=== PATIENT | female | born 1980 | race Caucasian/White ===

== ENCOUNTER 2016-09-08 05:54 | Day surgery (SDC) | payer OTHER ==
[2016-09-06 16:05] VITALS: BMI 27.8
--- NOTE | 2016-09-08 08:35 | HP ---
History & Physical Update - History History: No Change - Physical Physical: No Change - Assessment Assessment: No Change - Plan Plan: No Change (for laparoscopic bilateral salpingectomy)
[2016-09-08] MEDS ORDERED: IBUPROFEN 800 MG/8 ML IJ IVPB PRN (08:53)
[2016-09-08] MEDS ORDERED: ACETAMINOPHEN 325 MG TABLET (FP) PO PRN (08:53)
[2016-09-08] MEDS ORDERED: LACTATED RINGERS SOLUTION 1,000 ML IV SCH (09:00)
[2016-09-08] MEDS ORDERED: MIDAZOLAM HCL 2 MG/2 ML SINGLE DOSE VIAL ONE (09:10)
[2016-09-08] MEDS ORDERED: LIDOCAINE HCL/PF 2% SDV 5ML VIAL ONE (09:10)
[2016-09-08] MEDS ORDERED: PROPOFOL 20 ML ONE (09:10)
[2016-09-08] MEDS ORDERED: DEXAMETHASONE SOD PHOSPHATE 4 MG/1 ML VIAL ONE (09:37)
[2016-09-08] MEDS ORDERED: KETOROLAC TROMETHAMINE 30 MG/1 ML VIAL ONE (09:37)
[2016-09-08] MEDS ORDERED: GLYCOPYRROLATE 0.2 MG/1 ML VIAL ONE (09:51)
[2016-09-08] MEDS ORDERED: NEOSTIGMINE METHYLSULFATE 0.5 MG/ML - 10 ML MDV ONE (09:51)
[2016-09-08] MEDS ORDERED: oxyCODONE HCL 5 MG TABLET PO PRN (10:17)
[2016-09-08] MEDS ORDERED: ONDANSETRON 4 MG/2 ML VIAL IVPUSH PRN (10:17)
[2016-09-08] MEDS ORDERED: ACETAMINOPHEN 1000 MG/100 ML VIAL (NON FORMULARY) IVPB ONE (10:18)
[2016-09-08] MEDS ORDERED: ACETAMINOPHEN INJECTION 100 ML IVPB ONE (10:24)
[2016-09-08 13:03] VITALS: BP 117/72; PULSE 73; TEMP 98.6
--- NOTE | 2016-09-09 12:34 | OP ---
Operative Note - Note: Operative Date: 09/08/16 (dictation number: [id number]) Pre-Operative Diagnosis: desires permanent sterilization Operation: laparoscopic bilateral salpingectomy Findings: normal fallopian tubes/ovaries normal uterus normal female intrapelvic anatomy Post-Operative Diagnosis: Same as Pre-op Surgeon: Miriam Murrieta Snack Bar Cook: Miranda Zheng Anesthesiologist/CHANNEL MARKETING COORDINATOR: Teresa Patel Anesthesia: General Specimens Removed: bilateral fallopian tubes Estimated Blood Loss (mls): 3 Operative Report Dictated: Yes
--- NOTE | 2016-09-09 13:46 | PATH ---
Surgical Pathology Report Patient Name: [facility]MIE [facility]. Rec. #: [id number] /Age/Gender: 1980 (Age: 36) / F Account: [id number] Location: [facility] Taken: 09/08/2016 Received: 09/08/2016 Reported: 09/09/2016 Physicians: Miriam Murrieta M.D. Specimen(s) Received A: RIGHT FALLOPIAN TUBE B: LEFT FALLOPIAN TUBE Clinical History Desired sterilization Final Diagnosis A. FALLOPIAN TUBE, RIGHT, SALPINGECTOMY: BENIGN FALLOPIAN TUBE WITH COMPLETE CROSS SECTION B. FALLOPIAN TUBE, LEFT, SALPINGECTOMY: BENIGN FALLOPIAN TUBE WITH COMPLETE CROSS SECTION. Electronically Signed Keith Delgado M.D. Gross Description A. Received in formalin, labeled "right tube" is a 6.5 cm in length fimbriated portion of fallopian tube. There is a 0.5 cm in greatest dimension paratubal cyst attached to the fimbria. The outer surface of the fallopian tube is amin-pink and smooth. Sectioning reveals an unremarkable lumen. Fishing Vessel Mate sections are submitted in 2 cassettes as follows: 1-fimbria with paratubal cyst; 9-zemkq-ixpetyci of fallopian tube B. Received in formalin, labeled "left tube" is a 4.5 cm in length fimbriated portion of fallopian tube. The outer surface is amin-pink and smooth. Sectioning reveals an unremarkable lumen. Fishing Vessel Mate sections are submitted in 2 cassettes as follows: 1-fimbria; 2-cross sections of fallopian tube. 09/08/201609/08/2016
--- NOTE | 2016-09-09 18:54 | OP ---
DATE OF OPERATION: 09/08/2016 PREOPERATIVE DIAGNOSIS: Desire for permanent sterilization. POSTOPERATIVE DIAGNOSIS: Desire for permanent sterilization. PROCEDURE: Laparoscopic bilateral salpingectomy. SURGEON: Miriam Murrieta M.D. RD SCIENTIST: Christine Prieto COMPLICATIONS: None. ESTIMATED BLOOD LOSS: Minimal. ANESTHESIA: General anesthesia. ANESTHESIOLOGIST: Teresa Patel M.D. DISPOSITION: Stable to PACU. COUNTS: Sponge, needle, and instrument count was reported correct at the end of the case. BRIEF HISTORY AND PROCEDURE: Patient is a 36-year-old female who has been seen in the office with a request for permanent sterilization procedure. She does not desire future childbearing. The patient was consented on her options and elected to undergo laparoscopic bilateral salpingectomy. The patient was taken to [facility] on September 08, 2016, and consents were reconfirmed upon admission. The patient was then taken back to the operating room. She was given general anesthesia by Dr. Teresa Patel, and prepped and draped in the usual sterile fashion in the dorsal lithotomy position. A hard timeout was performed. A Almaraz catheter was placed under sterile conditions. First, a 5-mm infraumbilical skin incision was created, and a Veress needle was placed inside the abdomen, which was then used to insufflate the abdomen. After the abdomen was insufflated with CO2 gas, a trocar was placed in the incision and the camera was placed inside the abdomen to confirm intraabdominal placement. After confirmation of intraabdominal placement, bilateral lower quadrant ports, one on the left, and one on the right, were placed, 5 mm in size, under direct visualization. Next, the right fallopian tube was identified and traced to its fimbriated end, elevated, and dissected off the attachment to the ovary to the uterus and to the ligamentous attachments. Same was repeated on the left fallopian tube. Both fallopian tubes were removed from the 5-mm trocar under direct visualization and sent to pathology for permanent evaluation. Inspection of surgical site reveals hemostasis. Next the abdomen was desufflated. The trocars were removed from the abdomen. The incisions were reapproximated using Biosyn suture and skin glue, and the patient tolerated the procedure well, is recovering in stable condition in PACU after the procedure. Sponge, needle and instrument count was reported as correct at the end of the case. MIRIAM MURRIETA DO /[id number] MTDD
== END 2016-09-08 12:50 | disposition home or self-care (01) ==
LOC: JASU-SURG 05:54
PROVIDERS: ATTEND Obstetrics & Gynecology
PROC: 0UB74ZZ Excision of Bilateral Fallopian Tubes, Percutaneous Endoscopic Approach (ICD-10-PCS; principal; 2016-09-08 08:30)
DX: Z30.2 Encounter for sterilization (principal)
CPT/HCPCS: 88302-TC; 94760

== ENCOUNTER 2016-09-12 17:48 | Emergency (ER) | payer OTHER ==
[2016-09-12 18:11] VITALS: BP 122/68; PULSE 83; TEMP 98.1; BMI 27.6
--- NOTE | 2016-09-12 19:18 | PDOC ---
History of Present Illness - History of Present Illness Initial Comments: 09/12/16 19:58 The patient is a 36 year old female, with a significant past medical history of hyperlipidemia, who presents to the emergency department with increasing abdominal pain, nausea, vomiting and generalized weakness since having laparoscopic removal of bilateral fallopian tubes on 09/08/16. She reports her abdominal pain is localized to the lower abdominal region and nonradiating. She reports her pain is constant. She reports a couple episodes of vomiting today and states she feels weak. She denies chest pain, shortness of breath, headache and dizziness. She denies fever, chills, diarrhea and constipation. She denies dysuria, frequency, urgency and hematuria. Allergies: NKDA Past surgical history: bilateral salpingectomy (09/08/16) Social history: denies toxic habits MECHANICAL ENGINEERING INTERN: Dr. Murrieta <Eugenie Garza - Last Filed: 09/12/16 23:41> <Saul Jean - Last Filed: 09/12/16 23:43> - General Chief Complaint: Pain, Acute Stated Complaint: CHILLS/VOMITING/LOWER ABD PAIN Time Seen by Provider: 09/12/16 19:18 Past History <Eugenie Garza - Last Filed: 09/12/16 23:41> - Past Medical History Anemia: No Asthma: No Cancer: No Cardiac Disorders: No CVA: No COPD: No CHF: No Dementia: No Diabetes: No GI Disorders: No Disorders: No HTN: No Hypercholesterolemia: Yes Liver Disease: No Seizures: No Thyroid Disease: No - Surgical History Abdominal Surgery: (TUBES REMOVED 09/08/16) - Reproductive History (#): 1 Para: 0 Therapeutic (s) & number: No Spontaneous : 0 - Psycho/Social/Smoking Cessation Hx Anxiety: No Suicidal Ideation: No Smoking Status: No Smoking History: Never smoked Number of Cigarettes Smoked Daily: 0 Hx Alcohol Use: No Drug/Substance Use Hx: No Substance Use Type: None <Saul Jean - Last Filed: 09/12/16 23:43> - Past Medical History Allergies/Adverse Reactions: Allergies Allergy/AdvReac Type Severity Reaction Status Date / Time No Known Allergies Allergy Verified 09/12/16 18:11 Home Medications: Ambulatory Orders Bc Pill 1 tab PO DAILY 02/20/17 Oxycodone HCl/Acetaminophen [Percocet 5-325 mg Tablet -] 1 tab PO Q4H #20 tablet MDD 6 09/08/16 Review of Systems - Review of Systems Able to Perform ROS?: Yes Comments:: 09/12/16 19:58 CONSTITUTIONAL: (+) generalized weakness. Absent: fever, chills, diaphoresis, malaise, loss of appetite HEENT: Absent: rhinorrhea, nasal congestion, throat pain, throat swelling, difficulty swallowing, mouth swelling, ear pain, eye pain, visual Changes CARDIOVASCULAR: Absent: chest pain, syncope, palpitations, irregular heart rate, lightheadedness , peripheral edema RESPIRATORY: Absent: cough, shortness of breath, dyspnea with exertion, orthopnea, wheezing, stridor, hemoptysis GASTROINTESTINAL: (+) lower abdominal pain, nausea, vomiting, Absent: abdominal distension, diarrhea, constipation, melena, hematochezia GENITOURINARY: Absent: dysuria, frequency, urgency, hesitancy, hematuria, flank pain, genital pain MUSCULOSKELETAL: Absent: myalgia, arthralgia, joint swelling SKIN: Absent: rash, itching, pallor HEMATOLOGIC/IMMUNOLOGIC: Absent: easy bleeding, easy bruising, lymphadenopathy, frequent infections ENDOCRINE: Absent: unexplained weight gain, unexplained weight loss, heat intolerance, cold intolerance NEUROLOGIC: Absent: headache, focal weakness or paresthesias, dizziness, unsteady gait, seizure, mental status changes, bladder or bowel incontinence PSYCHIATRIC: Absent: anxiety, depression, suicidal or homicidal ideation, hallucinations. <Eugenie Garza - Last Filed: 09/12/16 23:41> *Physical Exam - Vital Signs Last Vital Signs Temp Pulse Resp BP Pulse Ox 98.1 F 83 18 122/68 99 09/12/16 18:08 09/12/16 18:08 09/12/16 18:08 09/12/16 18:08 09/12/16 18:08 - Physical Exam Comments: 09/12/16 20:00 GENERAL: Well developed, well nourished. Awake and alert. No acute distress. HEENT: Normocephalic, atraumatic. PERRLA, EOMI. No conjunctival pallor. Sclera are non- icteric. Moist mucous membranes. Oropharynx is clear. NECK: Supple. Full ROM. No JVD. Carotid pulses 2+ and symmetric, without bruits. No thyromegaly. No lymphadenopathy. CARDIOVASCULAR: Regular rate and rhythm. No murmurs, rubs, or gallops. Distal pulses are 2+ and symmetric. PULMONARY: No evidence of respiratory distress. Lungs clear to auscultation bilaterally. No wheezing, rales or rhonchi. ABDOMINAL: (+) Suprapubic tenderness to papation. Soft. Non-distended. No rebound or guarding. No organomegaly. Normoactive bowel sounds. MUSCULOSKELETAL Normal range of motion at all joints. No bony deformities or tenderness. No CVA tenderness. EXTREMITIES: No cyanosis. No clubbing. No edema. No calf tenderness. SKIN: Warm and dry. Normal capillary refill. No rashes. No jaundice. NEUROLOGICAL: Alert, awake, appropriate. Cranial nerves 2-12 intact. Normoreflexic in the upper and lower extremities. Normal speech. Toes are down-going bilaterally. Gait is normal without ataxia. PSYCHIATRIC: Cooperative. Good eye contact. Appropriate mood and affect. <Eugenie Garza - Last Filed: 09/12/16 23:41> - Vital Signs Last Vital Signs Temp Pulse Resp BP Pulse Ox 98.1 F 83 18 122/68 99 09/12/16 18:08 09/12/16 18:08 09/12/16 18:08 09/12/16 18:08 09/12/16 18:08 <Saul Jean - Last Filed: 09/12/16 23:43> ED Treatment Course - LABORATORY CBC & Chemistry Diagram: 09/12/16 19:45 09/12/16 19:45 - ADDITIONAL ORDERS Additional order review: 09/12/16 19:45 RBC 4.38 MCV 89.7 MCHC 34.7 RDW 13.1 MPV 8.6 Neutrophils % 83.4 H D Lymphocytes % 13.4 D Monocytes % 2.5 L Eosinophils % 0.4 Basophils % 0.3 - RADIOLOGY Radiograph Interpretation: 09/12/16 23:41 Exam: Contrast-enhanced CT abdomen and pelvis was read by Oni Castillo M.D. at 23:19 EST Clinical indication: Postop. Bilateral salpingectomy. Findings: The lung bases are clear. The upper abdominal viscera have a normal appearance. The adrenal glands are unremarkable. The kidneys have a normal appearance and enhance symmetrically. There is no evidence of urinary tract obstruction. The gastrointestinal tract does not appear obstructed. No thickened or dilated bowel is seen. The appendix has a normal appearance. There is no mesenteric infiltration. The uterus is anteverted. No adnexal masses are seen. The urinary bladder is unremarkable. No abdominal or pelvic adenopathy is seen. No lytic or blastic destructive osseous lesions are seen. Impression: No inflammatory process identified in the abdomen or pelvis. No abdominal mass, adenopathy or collection seen. - Medications Given in the ED: ED Medications Discontinued Medications Generic Name Dose Route Start Last Admin Trade Name Freq PRN Reason Stop Dose Admin Fentanyl 50 mcg 09/12/16 19:22 09/12/16 19:50 Sublimaze Injection - IVPUSH 09/12/16 19:23 50 mcg ONCE ONE Administration <Eugenie Garza - Last Filed: 09/12/16 23:41> - LABORATORY CBC & Chemistry Diagram: 09/12/16 19:45 09/12/16 19:45 <Saul Jean - Last Filed: 09/12/16 23:43> Medical Decision Making - Medical Decision Making 09/12/16 23:36 Dr. Murrieta was paged via phone answering service at this time requesting a callback for doctor to doctor consult. I was immediately connected with Dr. Murrieta's colleague, Dr. Molina and the patient's case was discussed. I will discharge home for routine post-op care. <Eugenie Garza - Last Filed: 09/12/16 23:41> *DC/Admit/Observation/Transfer - Attestations Scribe Attestion: 09/12/16 20:00 Documentation prepared by Eugenie Garza, acting as medical supervisor for Saul Jean MD, MD <Eugenie Garza - Last Filed: 09/12/16 23:41> - Discharge Dispostion Admit: No <Saul Jean - Last Filed: 09/12/16 23:43> Diagnosis at time of Disposition: Postoperative pain - Discharge Dispostion Disposition: HOME Condition at time of disposition: Improved
[2016-09-12] MEDS ORDERED: SODIUM CHLORIDE 1,000 ML IV SCH (19:30)
[2016-09-12 19:54] LABS: BASOPHIL 0.3 % (0-2.0); EOSINOPHIL 0.4 % (0-4.5); MCH 31.1 pg (25.7-33.7); MCHC 34.7 g/dl (32.0-36.0); MEAN CELL VOLUME 89.7 fl (80-96); MEAN PLT VOLUME 8.6 fl (7.5-11.1); NEUTROPHILS 83.4 % (42.8-82.8); PLATELET COUNT 285 K/MM3 (134-434); RDW 13.1 % (11.6-15.6); WHITE BLOOD COUNT 9.8 K/mm3 (4.0-10.0)
[2016-09-12] MEDS ORDERED: ONDANSETRON 4 MG/2 ML VIAL ONE (20:14)
[2016-09-12 20:16] LABS: ALBUMIN 3.7 g/dl (3.4-5.0); ANION GAP 7 (8-16); BILIRUBIN,TOTAL 0.4 mg/dL (0.2-1.0); CO2 27 mmol/L (21-32); CREATININE 0.6 mg/dL (0.55-1.02); GLUCOSE,RANDOM 129 mg/dL (74-106); SGOT/AST 13 U/L (15-37); SGPT/ALT 22 U/L (12-78); TOT PROT 7.9 g/dl (6.4-8.2)
[2016-09-12 20:17] LABS: ALK PHOS 84 U/L (45-117)
[2016-09-12] MEDS ORDERED: ONDANSETRON 4 MG/2 ML VIAL IVPUSH ONE (20:17)
[2016-09-12 21:36] LABS: URINE APPEARANCE CLEAR; URINE BILIRUBIN NEGATIVE (NEGATIVE); URINE BLOOD NEGATIVE (NEGATIVE); URINE COLOR LTYELLOW; URINE GLUCOSE (UA) NEGATIVE (NEGATIVE); URINE KETONE NEGATIVE (NEGATIVE); URINE NITRITE NEGATIVE (NEGATIVE); URINE PROTEIN NEGATIVE (NEGATIVE); URINE UROBILINOGEN NEGATIVE E.U./dl (0.2-1.0)
[2016-09-12 21:44] LABS: URINE BACTERIA RARE /hpf (NONE SEEN); URINE LEUK ESTERASE TRACE (NEGATIVE); URINE RBC 4 /hpf (0-3); URINE WBC 10 /hpf (3-5)
== END 2016-09-12 23:57 | disposition home or self-care (01) ==
LOC: JER 17:48
PROC: 3E033NZ Introduction of Analgesics, Hypnotics, Sedatives into Peripheral Vein, Percutaneous Approach (ICD-10-PCS; principal; 2016-09-12)
PROC: 3E033GC Introduction of Other Therapeutic Substance into Peripheral Vein, Percutaneous Approach (ICD-10-PCS; 2016-09-12)
DX: G89.18 Other acute postprocedural pain (principal)
CPT/HCPCS: 36415; 74177-TC; 80053; 81003; 81015; 83690; 84703; 85025; 86850; 86900; 86901; 87086; 96374; 96375; 99282-25

== ENCOUNTER 2019-05-22 09:16 | Day surgery (SDC) | payer BC ==
[2019-05-21 17:33] VITALS: BMI 29.1
[2019-05-22 10:28] LABS: INR 1.11 (0.83-1.09); PROTHROMBIN TIME (PATIENT) 13.1 SEC (9.7-13.0)
[2019-05-22 10:31] LABS: ACTIVATED PTT 36.9 SECONDS (25.2-36.5)
[2019-05-22 10:46] LABS: ANION GAP 6 MMOL/L (8-16); BLOOD UREA NITROGEN 12.6 mg/dL (7-18); CALCIUM 8.9 mg/dL (8.5-10.1); CHLORIDE 108 mmol/L (98-107); CO2 23 mmol/L (21-32); CREATININE 0.5 mg/dL (0.55-1.3); GLUCOSE,RANDOM 88 mg/dL (74-106); POTASSIUM 4.2 mmol/L (3.5-5.1); SODIUM 138 mmol/L (136-145)
--- NOTE | 2019-05-22 10:56 | OP ---
Operative Note - Note: Operative Date: 05/22/19 Pre-Operative Diagnosis: 38yo P0 with thick endometrium and menometrorhagia Operation: Hysteroscopy, Lysis of adhesions, Polypectomy, D&C Findings: Lower uterine segment obstructing tissue Uterine polyps Overgrown Endometrium Post-Operative Diagnosis: Same as Pre-op Surgeon: Pilar Kate Anesthesiologist/DIE CLEANER: Frank Tinoco Anesthesia: MAC Estimated Blood Loss (mls): 10 Instrument used (Debridements only): Symphion Drains & Tubes with Location: FD 800cc Blood Volume Replaced (mls): 10 Fluid Volume Replaced (mls): 300 Operative Report Dictated: Yes
--- NOTE | 2019-05-22 10:56 | HP ---
History & Physical Update - History History: No Change - Physical Physical: No Change - Assessment Assessment: No Change - Plan Plan: No Change (H&P reviewed and unchanged Consent signed and witnessed)
[2019-05-22] MEDS ORDERED: PROPOFOL 20 ML ONE (11:09)
[2019-05-22] MEDS ORDERED: MIDAZOLAM HCL 2 MG/2 ML SINGLE DOSE VIAL ONE (11:09)
[2019-05-22] MEDS ORDERED: LIDOCAINE HCL/PF 2% SDV 5ML VIAL ONE (11:16)
[2019-05-22] MEDS ORDERED: KETOROLAC TROMETHAMINE 30 MG/1 ML VIAL ONE (11:23)
[2019-05-22] MEDS ORDERED: DEXAMETHASONE SOD PHOSPHATE 4 MG/1 ML VIAL ONE (11:23)
[2019-05-22] MEDS ORDERED: ONDANSETRON 4 MG/2 ML VIAL IVPUSH PRN ×2 (12:23→12:27)
[2019-05-22] MEDS ORDERED: oxyCODONE HCL 5 MG TABLET PO PRN ×2 (12:23→12:27)
[2019-05-22] MEDS ORDERED: PROMETHAZINE HCL 25 MG/1 ML VIAL IVPUSH PRN (12:23)
[2019-05-22] MEDS ORDERED: IBUPROFEN 800 MG/8 ML IJ IVPB PRN (12:27)
[2019-05-22] MEDS ORDERED: IBUPROFEN 600 MG TABLET (FP) PO PRN (12:27)
[2019-05-22] MEDS ORDERED: LACTATED RINGERS SOLUTION 1,000 ML IV SCH (12:30)
[2019-05-22] MEDS ORDERED: ELECTROLYTE-148 SOLN 1,000 ML IV SCH (12:30)
[2019-05-22 14:45] VITALS: TEMP 98.3
[2019-05-22 17:33] VITALS: BP 119/72; PULSE 84
--- NOTE | 2019-05-23 17:58 | OP ---
DATE OF OPERATION: PREOPERATIVE DIAGNOSIS: A 38-year-old para 0, with thick endometrium and menometrorrhagia. PROCEDURE PERFORMED: Hysteroscopy, lysis of adhesions, polypectomy, dilatation and curettage. FINDINGS: Lower uterine segment obstructing tissue. Uterine polyps. Overgrown endometrium. POSTOPERATIVE DIAGNOSIS: A 38-year-old para 0, with thick endometrium and menometrorrhagia. SURGEON: Talia Dickinson MD ANESTHESIOLOGIST: Frank Tinoco M.D. ANESTHESIA: MAC. DESCRIPTION OF PROCEDURE: After assuring informed consent, the patient was brought to the operating room, where she was placed in the dorsal lithotomy position. The perineum and vagina were prepped and draped in sterile fashion. Hameed retractors were used to articulate the cervix with a single-tooth tenaculum. The cervix was gradually dilated with Oates dilators to accommodate a 6.3-mm Symphion hysteroscope. Some difficulty was encountered in introducing the Symphion hysteroscope due to obstructing tissue found in the lower uterine segment. The hysteroscope was white balanced and primed. The resecting device was introduced through the operative channel and the resecting device was used to gain entry into the uterine cavity, which was found to be, as described above, very overgrown, with multiple polyps which were all removed with the resecting device, as well as very overgrown endometrium which was resected as well. Excellent hemostasis was noted throughout. The hysteroscope was then removed, as well as the resectoscope. The uterine cavity was found to be intact. The instruments were removed from the uterus, cervix and vagina. Estimated blood loss was 10 mL. Urine output 100 mL. The patient received 300 mL of IV fluids, and fluid deficit was found to be 800 mL. The patient was brought to the recovery room in stable condition, extubated. Sponge and instrument counts were correct x2. TALIA DICKINSON M.D. [id number]
--- NOTE | 2019-05-28 15:20 | PATH ---
Surgical Pathology Report Patient Name: KIMMIE BARRY [facility]. Rec. #: [id number] /Age/Gender: 1980 (Age: 38) / F Account: [id number] Location: [facility] Taken: 05/22/2019 Received: 05/22/2019 Reported: 05/23/2019 Physicians: Pilar Kate M.D. 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 SEPARATE ENDOMETRIAL TISSUE WITH WEAKLY PROLIFERATIVE GLANDS AND DECIDUALIZED STROMA. SEE COMMENT. Comment: Findings of weakly proliferative glands and decidualized stroma may represent exogenous hormone effect. Suggest clinical correlation. Electronically Signed Verito Swenson M.D. Gross Description Received in formalin labeled "polyps and endometrial curettings," is a 5.0 x 4.0 x 0.3 cm aggregate of amin-pink soft tissue fragments. The formalin is filtered and the specimen is entirely submitted in 4 cassettes. /05/22/2019 saudi05/22/2019
== END 2019-05-22 16:10 | disposition home or self-care (01) ==
LOC: JASU-SURG 09:16
PROVIDERS: ATTEND Obstetrics & Gynecology
PROC: 0UJD8ZZ Inspection of Uterus and Cervix, Via Natural or Artificial Opening Endoscopic (ICD-10-PCS; 2019-05-22)
PROC: 0UB97ZX Excision of Uterus, Via Natural or Artificial Opening, Diagnostic (ICD-10-PCS; principal; 2019-05-22 11:00)
PROC: 0UDB7ZX Extraction of Endometrium, Via Natural or Artificial Opening, Diagnostic (ICD-10-PCS; 2019-05-22 11:00)
DX: N92.1 Excessive and frequent menstruation with irregular cycle (principal); N84.0 Polyp of corpus uteri
CPT/HCPCS: 36415; 80048; 84702; 85610; 85730; 86850; 86900; 86901; 88305-TC; 94760

== ENCOUNTER 2021-07-11 09:09 | Emergency (ER) | payer BC ==
[2021-07-11 09:39] VITALS: BP 133/71; PULSE 91; TEMP 98.4; BMI 29.1
[2021-07-11 10:26] LABS: PH,URINE 6.5 (5.0-8.0); URINE APPEARANCE CLOUDY; URINE BILIRUBIN NEGATIVE (NEGATIVE); URINE COLOR DK YELLOW; URINE GLUCOSE (UA) NEGATIVE (NEGATIVE); URINE KETONE NEGATIVE (NEGATIVE); URINE LEUK ESTERASE 3+ (NEGATIVE); URINE NITRITE POSITIVE (NEGATIVE); URINE PROTEIN NEGATIVE (NEGATIVE)
[2021-07-11 10:50] LABS: EPI CELLS 94.2 /uL (0-25.1); HYALINE CASTS 2.41 /uL (0-3.1); URINE CRYSTALS NON SEEN /hpf; URINE RBC 566.6 /uL (0-23.9); URINE WBC 417.3 /uL (0-25.8)
[2021-07-12 19:06] LABS: SARS-CoV-2 NAA Not Detected (Not Detected)
== END 2021-07-11 10:41 | disposition home or self-care (01) ==
LOC: JER 09:09
DX: J11.1 Influenza due to unidentified influenza virus with other respiratory manifestations (principal)
CPT/HCPCS: 81003; 87086; 99283-25; C9803; U0003; U0005